=== PATIENT | female | born 1990 | race Caucasian/White ===

== ENCOUNTER 2017-09-19 22:04 | Emergency (ER) | payer BC, OTHER ==
[~2017-09-19] VITALS: Ht 162.6 cm; Wt 49.9 kg
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
[2017-09-19] MEDS ORDERED: ACETAMINOPHEN ES 500 MG TABLET PO ONE (23:30)
[2017-09-19] MEDS ORDERED: ONDANSETRON 4 MG TAB.RAPDIS SL ONE (23:30)
[2017-09-19] MEDS ORDERED: ACETAMINOPHEN ES 500 MG TABLET ONE (23:31)
[2017-09-19] MEDS ORDERED: ONDANSETRON 4 MG TAB.RAPDIS ONE (23:31)
--- NOTE | 2017-09-20 00:35 | NUR ---
Patient discharged to home in stable condition. Written and verbal after care instructions given. Patient verbalizes understanding of instruction.
[2017-09-20 00:37] VITALS: BP 113/75
== END 2017-09-20 00:38 | disposition home or self-care (01) ==
LOC: ER 22:09
DX: S09.8XXA Other specified injuries of head, initial encounter (principal); F31.9 Bipolar disorder, unspecified; F17.200 Nicotine dependence, unspecified, uncomplicated; W01.0XXA Fall on same level from slipping, tripping and stumbling without subsequent striking against object, initial encounter; Y93.89 Activity, other specified; Y92.89 Other specified places as the place of occurrence of the external cause; Y99.8 Other external cause status
CPT/HCPCS: 70450-TC; A4606; Q0162; Z7610